=== PATIENT | male | born 1945 | race Caucasian/White ===

== ENCOUNTER → 2017-09-04 08:04 | Outpatient (CLI) | payer OTHER, SELFPAY ==
[2017-09-04 10:03] LABS: Add Manual Diff / Slide Review NO; Basophils Percent Auto 0.8 % (0-2); Eosinophils Percent Auto 2.5 % (2-4); Hematocrit 39.8 % (41-53); Hemoglobin 13.6 g/dL (13.5-17.5); Lymphocytes Percent Auto 38.9 % (25-40); Mean Corpuscular HGB Conc 34.3 % (30-36); Mean Corpuscular Hemoglobin 29.3 PG (26-34); Mean Corpuscular Volume 85.6 fL (80-100); Monocytes Percent Auto 10.1 % (3-14); Neutrophils Absolute Auto 2600 /uL (3000-5900); Neutrophils Percent Auto 47.7 % (50-75); Platelet Count 170 X10^3/uL (150-400); Red Blood Cell Count 4.65 X10^6/uL (4.5-5.9); Red Cell Distribution Width 13.6 % (11.6-14.8); White Blood Cell Count 5.5 X10^3/uL (4.5-11.0)
[2017-09-04 10:43] LABS: Alanine Aminotransferase 30 IU/L (21-72); Albumin Globulin Ratio 1.4 (1.0-2.8); Alkaline Phosphatase 53 U/L (38-126); Aspartate Aminotransferase 30 IU/L (17-59); BUN Creatinine Ratio 17.8 (6-22); Bilirubin Total 0.6 mg/dL (0.2-1.3); Calcium 9.1 mg/dL (8.4-10.2); Cholesterol 189 mg/dL (140-199); Estimated Glomerular Filt Rate > 60.0 mL/min (>60); Globulin 2.9 g/dL (1.7-4.1); Glucose 97 mg/dL (80-110); HDL Cholesterol 51 mg/dL (40-60); HEMOLYSIS < 15 (0-50); LDL Cholesterol Calculated 111 mg/dL (<100); Potassium 4.5 mmol/L (3.4-5.1); Sodium 143 mmol/L (137-145); Total Protein 6.9 g/dL (6.3-8.2); Triglycerides 136 mg/dL (35-150)
[2017-09-04 11:01] LABS: TSH w/ Reflex to FT4 3.48 uIU/mL (0.47-4.68)
[2017-09-04 11:05] LABS: Prostate Specific Antigen < 0.064 ng/mL (0.10-4.00)
== END ==
PROVIDERS: PCP Family Medicine; Visit Provider Family Medicine
DX: E78.5 Hyperlipidemia, unspecified (principal)
CPT/HCPCS: 36415; 80053; 80061; 84153; 84443; 85025

== ENCOUNTER → 2017-09-16 09:03 | Outpatient (CLI) | payer OTHER, SELFPAY ==
--- NOTE | 2017-09-16 09:04 | DI.ECHO.S_ITS ---
[facility] +---------+ [facility] +---------+ : : [address] : : [place] : : : : [id number] : : : : Phone: [phone]---------+ Echocardiogram Report + + :Name: DESMOND CALDWELL Study Date: 09/16/2017 Height: 68 in : :[facility] Exam Location: IS Weight: 184 lb : : Gender: Male BSA: 2.0 m2 : :: 1945 Age: 71 yrs BP: 138/78 mmHg: :Reason For Study: Murmur : :Ordering Physician: Sujey : :[place]ins Performed By: Perri Ramos : :Referring: SUJEY ERICKSON A : + + Interpretation Summary 1. Normal left ventricular size, wall thickness and systolic function with an estimated EF of 55 to 60% 2. Grossly normal right ventricular size and systolic function. The estimated RVSP is 21 mm Hg. The estimated right atrial pressure is low. 3. The aortic valve is not well visualized. There are some calcific changes. The mean gradient across the valve is most consistent with mild valvular stenosis. There is an eccentric jet of aortic insufficiency (somewhat difficult to characterize the location of the regurgitation with the images obtained) - this appears mild in severity. There is no old study available for comparison Procedure: A two-dimensional transthoracic echocardiogram with color flow and Doppler was performed. The study quality was technically adequate. Most of the acoustic windows were suboptimal, but the best imaging was obtained from the parasternal window. There is no prior echocardiogram noted for this patient. The patient was in normal sinus rhythm during the exam. Left Ventricle: The left ventricle is normal in size. Left ventricular wall thickness is normal. The ejection fraction is estimated to be 55-60%. Right Ventricle: The right ventricle grossly appears normal in size with probable normal systolic function. Atria: The left atrium is moderately dilated. Right atrium not well visualized secondary to technical limitations. No color doppler evidence for an ASD. Mitral Valve: The mitral valve is normal in structure and function. There is trace mitral regurgitation. Aortic Valve: Poor visualization of the aortic valve. Difficult to differentiate valve cusps. Nodular calcification is visualized on the aortic valve. The peak aortic velocity is 2.78 m/sec. The aortic valve mean gradient is 18 mmHg. There is no hemodynamically significant valvular aortic stenosis. There is mild aortic regurgitation. Aortic regurgitation jet location is difficult to assess due to eccentric direction of the jet. (See clip 62). Tricuspid Valve: The tricuspid valve is normal in structure and function. There is a trace or physiologic amount of tricuspid regurgitation. The right ventricular systolic pressure is estimated at 21 mmHg assuming a right atrial pressure of 3 mm Hg. Pulmonic Valve: The pulmonic valve is not well seen, but is grossly normal. There is trace pulmonic regurgitation. Great Vessels: The ascending aorta is dilated at 4.9 cm. The IVC is of normal diameter and collapses greater than 50% with a sniff. This suggests a low right atrial pressure of 3 mm Hg. Pericardium/ Pleura There is no pericardial effusion. There is no pleural effusion. MMode/2D Measurements & Calculations LVIDd: 5.3 cm asc Aorta Diam: 4.9 cm LVIDs: 3.4 cm Ao Arch Diam (Prox Trans): 3.6 cm FS: 36.1 % EPSS: 0.70 cm IVSd: 0.98 cm LVPWd: 1.2 cm LV costa. diameter/BSA (cm/m^2): 2.7 LV sys. diameter/BSA (cm/m^2): 1.7 LA A2 area: 23.4 cm2 LA A4 area: 25.9 cm2 LA length (vol): 5.5 cm LA vol: 93.5 ml LA vol index: 47.4 ml/m2 Doppler Measurements & Calculations Ao V2 max: 278.9 cm/sec LVOT Max Girma: 108.6 cm/sec Ao V2 mean: 203.0 cm/sec LV V1 max P.7 mmHg Ao max P.1 mmHg LV V1 VTI: 22.3 cm Ao mean P.2 mmHg sev ratio: 0.39 Ao V2 VTI: 56.7 cm MV E max girma: 61.3 cm/sec TR max girma: 212.6 cm/sec MV A max girma: 47.3 cm/sec TR max P.1 mmHg MV E/A: 1.3 PA V2 max: 56.9 cm/sec MV dec time: 0.19 sec PA V2 mean: 37.2 cm/sec PA mean P.62 mmHg PA pr(Accel): 29.1 mmHg Reading Physician:LISA
== END ==
PROVIDERS: Family Provider Family Medicine; PCP Family Medicine; Visit Provider Family Medicine
DX: I35.2 Nonrheumatic aortic (valve) stenosis with insufficiency (principal); R01.1 Cardiac murmur, unspecified
CPT/HCPCS: 93306

== ENCOUNTER → 2017-09-23 10:17 | Outpatient (CLI) | payer OTHER, SELFPAY ==
[2017-09-27 20:31] LABS: Fecal Immunochemical Test NOT DETECTED
== END ==
PROVIDERS: PCP Family Medicine; Visit Provider Family Medicine
DX: Z00.00 Encounter for general adult medical examination without abnormal findings (principal); Z12.11 Encounter for screening for malignant neoplasm of colon
CPT/HCPCS: 82274

== ENCOUNTER → 2018-02-27 08:30 | Outpatient (CLI) | payer OTHER, SELFPAY ==
[2018-02-27 10:06] LABS: Add Manual Diff / Slide Review NO; Basophils Percent Auto 0.9 % (0-2); Eosinophils Percent Auto 2.5 % (2-4); Hematocrit 42.1 % (41-53); Hemoglobin 14.4 g/dL (13.5-17.5); Lymphocytes Percent Auto 36.4 % (25-40); Mean Corpuscular HGB Conc 34.2 % (30-36); Mean Corpuscular Hemoglobin 29.2 PG (26-34); Mean Corpuscular Volume 85.4 fL (80-100); Monocytes Percent Auto 10.6 % (3-14); Neutrophils Absolute Auto 3000 /uL (3000-5900); Neutrophils Percent Auto 49.6 % (50-75); Platelet Count 198 X10^3/uL (150-400); Red Blood Cell Count 4.93 X10^6/uL (4.5-5.9); Red Cell Distribution Width 13.8 % (11.6-14.8)
== END ==
PROVIDERS: Visit Provider Registered Nurse
DX: R89.9 Unspecified abnormal finding in specimens from other organs, systems and tissues (principal)
CPT/HCPCS: 36415; 85025

== ENCOUNTER → 2018-06-05 15:48 | Outpatient (CLI) | payer OTHER, SELFPAY ==
--- NOTE | 2018-06-05 | DI.US.S_ITS ---
PROCEDURE: US ABDOMEN COMPLETE INDICATIONS: RIGHT UPPER QUADRANT PAIN TECHNIQUE: Real-time scanning was performed of the abdominal and retroperitoneal organs, with image documentation. COMPARISON: [facility], US, ABDOMEN COMPLETE, 10/04/2015, 7:34. FINDINGS: Liver: Liver is normal in size and homogeneous in echotexture. There are several scattered liver cysts the largest of which measures up to 1.7 cm, previously present. Gallbladder: The gallbladder appears normal Biliary ducts: Intrahepatic bile ducts are non-dilated. Extrahepatic bile duct caliber measures 4.9 mm. Normal is 6-7 mm or less in diameter, or 10 mm or less post-cholecystectomy. Pancreas: Visualized portions of the pancreas are sonographically normal. Spleen: Spleen is normal in size and homogeneous in echotexture. Kidneys: Kidneys are normal in size and echotexture. Right kidney measures 11.8 cm long; left kidney measures 10.6 cm long. No hydronephrosis or nephrolithiasis. No solid masses. Aorta: Visualized aorta is normal in caliber at less than 3 cm. Iliacs: Obscured by bowel gas IVC: Intrahepatic inferior vena cava is patent. Miscellaneous: No free abdominal fluid. IMPRESSION: Source of right upper quadrant pain after eating is not identified. The gallbladder is free of sludge or stone. No biliary distention is found. Depending on clinical status a followup nuclear medicine hepatobiliary scan with gallbladder ejection fraction evaluation may be warranted. Dictated by: Kenneth Cabral M.D. on 06/06/2018 at 10:23 Approved by: Kenneth Cabral M.D. on 06/06/2018 at 10:24
== END ==
PROVIDERS: PCP Student in an Organized Health Care Education/Training Program; Visit Provider Student in an Organized Health Care Education/Training Program
DX: R10.11 Right upper quadrant pain (principal); K76.89 Other specified diseases of liver
CPT/HCPCS: 76700

== ENCOUNTER → 2018-06-23 08:28 | Outpatient (CLI) | payer OTHER, SELFPAY ==
--- NOTE | 2018-06-23 08:30 | DI.NM.S_ITS ---
PROCEDURE: NM HIDA WITH CCK PHARMACEUTICAL: 4.6 mCi Tc-99m mebrofenin IV; 1.8 mcg CCK IV. INDICATIONS: RUQ pain after eating TECHNIQUE: Following intravenous administration of Tc-99m mebrofenin, sequential anterior abdominal images were obtained. To evaluate the contractile response of the gallbladder in response to Cholecystokinin (CCK), sincalide (0.02 ?g/kg) was administered by slow intravenous infusion approximately 60 minutes after the administration of the radiopharmaceutical. Sequential imaging was continued for 30 minutes after the start of CCK infusion. Gallbladder ejection fraction was calculated. COMPARISON: None. FINDINGS: Biliary scan: There is normal tracer uptake and excretion by the liver. There is normal visualization of the intrahepatic ducts, common bile duct, and gallbladder. There is normal tracer transit into the duodenum. CCK stimulation: There is normal contractile response of the gallbladder to CCK infusion. The calculated gallbladder ejection fraction is 50%; normal values are above 35%. It has been shown that any patient abdominal pain after CCK administration is related to the rate of CCK injection, rather than to any underlying gallbladder disease (Clinical Nuclear Medicine 2012; 37: 63-70. Journal of Nuclear Medicine 2014; 55: 1-9). IMPRESSION: Normal examination without evidence of cholecystitis. Dictated by: Katie Calix MD, PhD on 06/23/2018 at 12:44 Approved by: Katie Calix MD, PhD on 06/23/2018 at 12:45
== END ==
PROVIDERS: PCP Student in an Organized Health Care Education/Training Program; Visit Provider Student in an Organized Health Care Education/Training Program
DX: R10.11 Right upper quadrant pain (principal)
CPT/HCPCS: 78227; A9537; J2805

== ENCOUNTER → 2018-11-11 07:09 | Outpatient (CLI) | payer OTHER, SELFPAY ==
[2018-11-11 08:15] LABS: Alanine Aminotransferase 35 IU/L (21-72); Albumin Globulin Ratio 1.5 (1.0-2.8); Alkaline Phosphatase 46 U/L (38-126); Aspartate Aminotransferase 30 IU/L (17-59); BUN Creatinine Ratio 25.6 (6-22); Bilirubin Total 0.5 mg/dL (0.2-1.3); Blood Urea Nitrogen 23 mg/dL (9-20); Calcium 9.2 mg/dL (8.4-10.2); Carbon Dioxide 25 mmol/L (22-32); Chloride 107 mmol/L (98-107); Cholesterol 158 mg/dL (140-199); Estimated Glomerular Filt Rate > 60.0 mL/min (>60); Gamma Glutamyl Transpeptidase 22 U/L (15-73); Globulin 2.7 g/dL (1.7-4.1); Glucose 102 mg/dL (80-110); HDL Cholesterol 51 mg/dL (40-60); HEMOLYSIS < 15 (0-50); LDL Cholesterol Calculated 89 mg/dL (<100); Potassium 4.3 mmol/L (3.4-5.1); Sodium 141 mmol/L (137-145); Total Protein 6.7 g/dL (6.3-8.2); Triglycerides 88 mg/dL (35-150)
[2018-11-11 08:29] LABS: Vitamin D 25 Hydroxy (D3) 37.8 ng/mL (30.0-100.0)
[2018-11-11 08:48] LABS: Prostate Specific Antigen < 0.064 ng/mL (0.10-4.00)
== END ==
PROVIDERS: PCP Student in an Organized Health Care Education/Training Program; Visit Provider Student in an Organized Health Care Education/Training Program
DX: C61 Malignant neoplasm of prostate (principal); E78.2 Mixed hyperlipidemia; I10 Essential (primary) hypertension; R10.13 Epigastric pain; Z79.899 Other long term (current) drug therapy
CPT/HCPCS: 36415; 80053; 80061; 82306; 82977; 84153

== ENCOUNTER → 2019-10-02 09:22 | Outpatient (CLI) | payer MEDICARE, SELFPAY ==
--- NOTE | 2019-10-02 | DI.MRI.S_ITS ---
PROCEDURE: MR LUMBAR SPINE WO CON INDICATIONS: Spinal stenosis, lumbar region with neurogenic cla TECHNIQUE: Noncontrast sagittal T1 spin echo and T2 fast echo, sagittal STIR, axial T1 and T2 fast spin echo through the lumbar spine. In cases with scoliosis, additional coronal T2 fast spin echo may be performed. COMPARISON: [facility], MR, L-SPINE WITHOUT CONTRAST, 01/10/2017, 19:17. [facility], MR, L-SPINE W&WO CONTRAST, 01/11/2015, 16:48. [facility], CT, L-SPINE WITHOUT CONTRAST, 10/19/2014, 9:06. FINDINGS: Image quality: Excellent. Alignment and Curvature: There is normal bony alignment. Bones: Surgical changes compatible with L5-S1 PLIF. Recommend plate changes noted adjacent to the L5-S1 disc. No acute vertebral body compression fractures. Spinal Cord: Conus medullaris terminates at the L1 level. Visualized cord demonstrates normal signal and size. Paraspinous Soft Tissues: No paravertebral masses. L1-L2: Slight loss of disc signal. No central stenosis. No neural foraminal narrowing. No neural compression. L2-L3: Loss of the signal. Mild, diffuse disc bulge. Mild narrowing of the central canal. Mild bilateral neural foraminal narrowing. No neural compression. L3-L4: Loss of disc signal. Mild, diffuse disc bulge. Mild narrowing of the central canal. Mild bilateral neural foraminal narrowing. No neural compression. L4-L5: Loss of disc signal. Mild diffuse disc bulge. Mild bilateral facet hypertrophy. Mild narrowing of the central canal. Mild to moderate bilateral neural foraminal narrowing. No neural compression. L5-S1: Status post fusion. Mild bilateral facet hypertrophy. No central stenosis. Moderate right and [id number] left neural foraminal narrowing. No neural compression. IMPRESSION: 1. Status post L5-S1 fusion. 2. Multilevel degenerative disc disease. 3. Mild L2-L3, L3-L4 and L4-L5 central canal narrowing. 4. Moderate right and mild/moderate left L5-S1 neural foraminal narrowing. Mild to moderate bilateral L4-L5 neural foraminal narrowing. Mild bilateral L2-L3 and L3-L4 neural foraminal narrowing. 5. No neural compression. Dictated by: Katie Calix MD, PhD on 10/02/2019 at 13:37 Approved by: Katie Calix MD, PhD on 10/02/2019 at 13:41
== END ==
PROVIDERS: PCP Student in an Organized Health Care Education/Training Program; Referring Provider Psychiatry & Neurology Neurology; Visit Provider Psychiatry & Neurology Neurology
DX: M48.062 Spinal stenosis, lumbar region with neurogenic claudication (principal); M51.36 Other intervertebral disc degeneration, lumbar region; Z98.1 Arthrodesis status
CPT/HCPCS: 72148

== ENCOUNTER → 2019-12-01 07:53 | Outpatient (CLI) | payer MEDICARE, SELFPAY ==
[2019-12-01 10:15] LABS: C-Reactive Protein Quant 0.8 mg/dL (<1.0)
[2019-12-01 10:18] LABS: Erythrocyte Sedimentation Rate 11 MM/HR (0-15)
[2019-12-02 15:36] LABS: SS A Ro Sjogrens Antibody < 0.2 AI (0.0-0.9); SS B La Sjogrens Antibody < 0.2 AI (0.0-0.9)
[2019-12-03 10:17] LABS: ANA Screen, IFA Negative (.)
[2019-12-03 13:17] LABS: Antimyeloperoxidase AB <9.0 U/mL (0.0-9.0); Antiproteinase 3 AB <3.5 U/mL (0.0-3.5); Atypical P-ANCA Titer <1:20 titer (Neg:<1:20); C-ANCA Titer <1:20 titer (Neg:<1:20); P-ANCA Titer <1:20 titer (Neg:<1:20)
== END ==
PROVIDERS: PCP Student in an Organized Health Care Education/Training Program; Referring Provider Psychiatry & Neurology Neurology; Visit Provider Psychiatry & Neurology Neurology
DX: G60.3 Idiopathic progressive neuropathy (principal)
CPT/HCPCS: 36415; 82595; 83516; 83520; 85651; 86038; 86140; 86235; 86256

== ENCOUNTER → 2020-03-30 15:25 | Outpatient (CLI) | payer MEDICARE, SELFPAY ==
[2020-03-30 16:48] LABS: Alanine Aminotransferase 29 IU/L (<50); Albumin 4.1 g/dL (3.5-5.0); Albumin Globulin Ratio 1.4 (1.0-2.8); Alkaline Phosphatase 50 U/L (38-126); Aspartate Aminotransferase 34 IU/L (17-59); BUN Creatinine Ratio 23.9 (6-22); Bilirubin Total 0.3 mg/dL (0.2-1.3); Blood Urea Nitrogen 22 mg/dL (9-20); Calcium 9.3 mg/dL (8.4-10.2); Carbon Dioxide 31 mmol/L (22-32); Chloride 106 mmol/L (98-107); Cholesterol 209 mg/dL (140-199); Estimated Glomerular Filt Rate > 60.0 mL/min (>60); Globulin 2.9 g/dL (1.7-4.1); Glucose 73 mg/dL (80-110); HDL Cholesterol 42 mg/dL (40-60); HEMOLYSIS < 15 (0-50); LDL Cholesterol Calculated 108 mg/dL (<100); Potassium 3.9 mmol/L (3.4-5.1); Sodium 139 mmol/L (137-145); Triglycerides 293 mg/dL (35-150)
[2020-03-30 17:16] LABS: Prostate Specific Antigen 0.087 ng/mL (0.10-4.00)
== END ==
PROVIDERS: PCP Student in an Organized Health Care Education/Training Program; Referring Provider Student in an Organized Health Care Education/Training Program; Visit Provider Student in an Organized Health Care Education/Training Program
DX: E78.00 Pure hypercholesterolemia, unspecified (principal); Z85.46 Personal history of malignant neoplasm of prostate; G62.9 Polyneuropathy, unspecified; I10 Essential (primary) hypertension; Z79.899 Other long term (current) drug therapy
CPT/HCPCS: 36415; 80053; 80061; 84153

== ENCOUNTER → 2020-04-27 10:35 | Outpatient (CLI) | payer MEDICARE, SELFPAY ==
[2020-04-28 12:54] LABS: Fecal Immunochemical Test Negative (Negative)
== END ==
PROVIDERS: PCP Student in an Organized Health Care Education/Training Program; Referring Provider Student in an Organized Health Care Education/Training Program; Visit Provider Student in an Organized Health Care Education/Training Program
DX: Z12.11 Encounter for screening for malignant neoplasm of colon (principal)
CPT/HCPCS: 82274

== ENCOUNTER → 2020-05-12 16:19 | Outpatient (CLI) | payer MEDICARE, SELFPAY ==
[2020-05-12] MEDS: COVID-19 VACC #1, MRNA(MOD) 100 MCG/0.5 ML VIAL IM (16:26)
== END ==
PROVIDERS: PCP Student in an Organized Health Care Education/Training Program; Visit Provider Internal Medicine
DX: Z23 Encounter for immunization (principal)
CPT/HCPCS: 0011A; 91301

== ENCOUNTER → 2020-06-09 16:08 | Outpatient (CLI) | payer MEDICARE, SELFPAY ==
[2020-06-09] MEDS: COVID-19 VACC #2, MRNA(MOD) 100 MCG/0.5 ML VIAL IM (16:29)
== END ==
PROVIDERS: PCP Student in an Organized Health Care Education/Training Program; Visit Provider Internal Medicine
DX: Z23 Encounter for immunization (principal)
CPT/HCPCS: 0012A; 91301

== ENCOUNTER → 2023-02-07 10:29 | Outpatient (CLI) | payer MEDICARE, SELFPAY ==
--- NOTE | 2023-02-07 | DI.ECHO.S_ITS ---
[facility] +---------+ [facility] +---------+ : : [address] : : [place] : : : : [id number] : : : : Phone: [phone] +---------+ Echocardiogram Report + + :Name: DESMOND CALDWELL Study Date: 02/07/2023 Height: 68 in : :[facility] ReadingLocation: Weight: 196 lb : : Gender: Male BSA: 2.0 m2 : :: 1945 Age: 77 yrs BP: 144/84 mmHg: :Reason For Study: Congenital Insufficiency of Aortic Valve : :Ordering Physician: SWEETIE, : :NAWAF Performed By: Ramona Vasquez : :Referring: NAWAF MCGOWAN : + + Interpretation Summary 1) Mildly increased left ventricular thickenss (concentric) with normal size and low normal systolic function (EF 50-55%). 2 Normal right ventricular size and function. 3) Aortic valve is bicuspid and calcific. 4) There is moderate aortic stenosis (valve area 1.1cm2, mean gradient 20mmHg, severity ratio 0.31). 5) The ascending aorta is moderate-severely enlarged at 4.8cm. 6 No prior echo available for comparison. Procedure: A two-dimensional transthoracic echocardiogram with color flow and Doppler was performed. The study quality was technically adequate. The patient had an echocardiogram, but there is no comparison study available. The patient was in a bradycardic rhythm during the exam. The patient had occasional PACs during the exam. Left Ventricle: The left ventricle is normal in size. There is mild concentric left ventricular hypertrophy. The ejection fraction is estimated to be 50-55%. There are no focal wall motion abnormalities. Diastolic parameters suggest a relaxation abnormality of the left ventricle, consistent with probable normal filling pressures. Right Ventricle: The right ventricle is normal in size and function. Atria: The left atrium is moderately dilated. Right atrial size is normal. There is no Doppler evidence for an interatrial shunt. Mitral Valve: The mitral valve is normal. There is no mitral valve stenosis. There is trace mitral regurgitation. Aortic Valve: The aortic valve is bicuspid. The aortic valve is heavily calcified. There is moderate aortic stenosis. The peak aortic velocity is 3.02 m/sec. The aortic valve mean gradient is 20 mmHg. There is trace aortic regurgitation. Tricuspid Valve: The tricuspid valve is normal. There is no tricuspid stenosis. There is trace tricuspid regurgitation. The right ventricular systolic pressure is estimated to be at least 18 mmHg based on an estimated right atrial pressure of 3 mm Hg. Pulmonic Valve: The pulmonic valve leaflets are thin and pliable; valve motion is normal. There is no pulmonic valvular stenosis. There is trace pulmonic regurgitation. Great Vessels: The aortic root is normal size. The ascending aorta is moderate-severely enlarged. The pulmonary artery is normal size. The IVC is of normal diameter and collapses greater than 50% with a sniff. This suggests a low right atrial pressure of 3 mm Hg. Pericardium/ Pleura There is no pericardial effusion. There is no pleural effusion. MMode/2D Measurements & Calculations LVIDd: 4.7 cm LVOT diam: 2.1 cm LVIDs: 3.2 cm Ao root diam: 3.4 cm FS: 31.9 % asc Aorta Diam: 4.8 cm IVSd: 1.1 cm LVPWd: 1.2 cm LV costa. diameter/BSA (cm/m^2): 2.3 LV sys. diameter/BSA (cm/m^2): 1.6 LA A2 area: 25.0 cm2 RA long axis: 5.0 cm LA A4 area: 21.7 cm2 RA area: 14.3 cm2 LA length (vol): 6.7 cm RA vol: 34.4 ml LA vol: 68.8 ml RA : 17.0 ml/m2 LA vol index: 34.0 ml/m2 RVD1 (basal): 3.2 cm LVLs ap4: 6.7 cm LVLd ap2: 7.5 cm TAPSE_phl: 2.3 cm LVLs ap2: 6.2 cm Doppler Measurements & Calculations Ao V2 max: 291.0 cm/sec LVOT Max Girma: 93.8 cm/sec Ao V2 mean: 196.8 cm/sec LV V1 max P.5 mmHg Ao max P.0 mmHg LV V1 VTI: 23.1 cm Ao mean P.6 mmHg ARMIDA(I,D): 1.1 cm2 Ao V2 VTI: 73.8 cm ARMIDA(V,D): 1.1 cm2 sev ratio: 0.31 ARMIDA indexed to BSA (cm^2/m^2): 0.55 MV E max girma: 65.5 cm/sec TR max girma: 193.9 cm/sec MV A max girma: 68.6 cm/sec TR max P.0 mmHg MV E/A: 0.95 PA V2 max: 98.9 cm/sec Med Peak E' Girma: 5.1 cm/sec PA V2 mean: 64.7 cm/sec E/E' med: 12.9 PA mean P.0 mmHg Lat Peak E' Girma: 7.4 cm/sec PA pr(Accel): 13.8 mmHg E/E' lat: 8.8 E/e' average: 10.8 MV dec time: 0.20 sec SV(LVOT): 82.2 ml AV VR_phl: 0.32 ARMIDA(VTI)/BSA_phl: 0.48 Reading Physician:01:08 PM
--- OUTSIDE RECORDS SUMMARY | 2023-03-15 14:58 | XMS_ITS | Referral Summary ---
Author Name Unknown Organization [facility] Address [address] [place] [address] Care Team Providers Care Window Clerk Name Role Phone Marta Rojas MD Primary Care Provider Reason for Referral * Consultation (Routine) - Authorized Specialty Diagnoses / Procedures Referred By Contac t Referred To Contact Physical Therapy Diagnoses History of lumbar fusion Lumbar facet arthropathy Lumbar strain, initial encounter Damian Quan PA-C [address] [place] [address] [place] [id number] [phone] Referral ID Status Reason Start Date Expiration Date Visits Requested Visits Authorized [id number] Authorized Specialty Services Required 11/06/2022 11/01/2023 12 12 * Diagnostic Imaging (Routine) - Closed Specialty Diagnoses / Procedures Referred By Contac t Referred To Contact Radiology Diagnoses Low back pain, unspecified back pain laterality, unspecified chronicity, unspecified whether sciatica present Procedures XR LUMBAR SPINE WITH FLEXION EXTENSION 5 VIEWS Damian Quan PA-C [address] [place] [address] [facility] [address] [place] [address] Referral ID Status Reason Start Date Expiration Date V isits Requested Visits Authorized [id number] Closed Specialty Services Required 11/02/2022 10/28/2023 1 1 Reason for Visit * Reason Comments Pain Lumbar back pain * Surgical (Routine) - Closed Specialty Diagnoses / Procedures Referred By Lory t Referred To Contact Orthopedic Surgery / Orthopaedic Surgery Diagnoses Lumbar back pain History of lumbar fusion Marta Rojas MD [address] [place] [address] [facility] [address] [place] [phone] Referral ID Status Reason Start Date Expiration Date V isits Requested Visits Authorized [id number] Closed Specialty Services Required 10/30/2022 11/30/2022 1 1 Encounter Details Date Type Department Care Team Description 11/06/2022 Office Visit [facility] [place] [address] [place] [phone] Damian Quan PA-C [facility] [place] [address] Low back pain, unspecified back pain laterality, unspecified chronicity, unspecified whether sciatica present (Primary Dx); Lumbar facet arthropathy; Lumbar spondylosis; History of lumbar fusion; Lumbar strain, initial encounter Allergies Active Allergy Reactions Severity Noted Date Comments Penicillins Hives Medium 12/02/2017 documented as of this encounter (statuses as of 11/12/2022) Medications Medication Sig Dispensed Refills Start Date End Date Status lisinopriL (PRINIVIL) 20 mg tabletIndications:Es sential hypertension take 1 tablet by mouth once daily 90 tablet 3 12/27/2021 Active Additional Information Patient taking differently: 20 mg oral Every morning, Informant: Self, Reported on 03/14/2022 gabapentin (NEURONTIN) 300 mg capsule Take 1 capsule (300 mg total) by mouth 3 (three) times a day 60 capsule 2 02/27/2022 Active primidone (MYSOLINE) 50 mg tabletIndications:Es sential tremor Take 1 tablet (50 mg total) by mouth 2 (two) times a day 180 tablet 3 03/20/2022 3 Active ascorbic acid, vitamin C, (VITAMIN C) 1,000 mg tablet Take 1 tablet (1,000 mg total) by mouth daily 0 Active pravastatin (PRAVACHOL) 20 mg tabletIndications:Mi xed hyperlipidemia Take 1 tablet (20 mg total) by mouth daily 90 tablet 3 06/12/2022 Active acetaminophen (TYLENOL) 325 mg tablet Take 2 tablets (650 mg total) by mouth every 6 (six) hours as needed for mild pain 0 Active Xiidra 5 % dropperette INSTILL 1 DROP INTO AFFECTED EYE 2 TIMES EVERY DAY 0 11/02/2022 Active methocarbamoL (ROBAXIN) 500 mg tabletIndications:Lo w back pain, unspecified back pain laterality, unspecified chronicity, unspecified whether sciatica present,History of lumbar fusion,Lumbar facet arthropathy,Lumbar spondylosis Start with 1 tablet at bedtime as needed for muscle spasms, can increase to 4 times daily if tolerating well 40 tablet 1 11/06/2022 Active methylPREDNISolone (MEDROL DOSEPACK) 4 mg tabletIndications:Lo w back pain, unspecified back pain laterality, unspecified chronicity, unspecified whether sciatica present,History of lumbar fusion,Lumbar facet arthropathy,Lumbar spondylosis Take as directed on package for pain/inflammation 1 tablet 0 11/06/2022 3 Active meloxicam (MOBIC) 15 mg tabletIndications:Lo w back pain, unspecified back pain laterality, unspecified chronicity, unspecified whether sciatica present,History of lumbar fusion,Lumbar facet arthropathy,Lumbar spondylosis Take 0.5 tablets (7.5 mg total) by mouth daily Take 1 tablet with breakfast for pain/inflammation x2 weeks, then as needed 30 tablet 1 11/06/2022 Active documented as of this encounter (statuses as of 11/12/2022) Active Problems Problem Noted Date Lumbar facet arthropathy 11/06/2022 Lumbar spondylosis 11/06/2022 Lumbar strain, initial encounter 023 Low back pain 11/06/2022 Medicare annual wellness visit, subseque nt 06/08/2022 Last Assessment & Plan: Ask the pharmacy about Shingrix vaccine - 2-dose vaccine against shingles. Dry mouth 06/08/2022 Asymptomatic spider vein 06/08/2022 History of right hip replacement 023 Keratosis, seborrheic 08/24/2021 Last Assessment & Plan: - Discussed benign nature of patient's seborrheic keratosis. Informed patient regarding ABCDE changes to watch out for and to use sunscreen to limit damage from sun exposure. Retrolisthesis of vertebrae 08/10/2021 History of lumbar fusion 08/09/2021 Last Assessment & Plan: Patient continues to have some numbness lower extremity, will follow-up with orthopedic spinal, has pending MRI and EMG nerve study. Lumbar radiculopathy 08/09/2021 Last Assessment & Plan: - EMG/NCV performed in clinic today. - Apply ice in 15-20 minute intervals to any painful areas. - Results from today's study will be shared with your referring provider. - Please follow up with Miranda Royal PA-C to review results once they become available. - Contact Neurology if you develop any new or worsening neurologic symptoms. Neuropathy 09/05/2020 Last Assessment & Plan: Look into alpha-lipoic acid 600 mg daily as a supplement for neuropathy. Let me know if you are interested in trying Gabapentin 100 mg during the day as needed for pain. Aortic stenosis due to bicuspid aortic v alve 09/05/2020 Last Assessment & Plan: An ECHO was ordered at today's visit. Essential hypertension 11/07/2017 Last Assessment & Plan: Very well controlled. Continue with lisinopril 20 mg. Ascending aorta dilatation 11/07/2017 Hyperlipidemia 07/10/2016 Last Assessment & Plan: Continue with pravastatin 10 mg Lab work ordered today. Please go to the lab and complete these in February 2021. documented as of this encounter (statuses as of 11/12/2022) Resolved Problems Problem Noted Date Resolved Date Osteoarthritis of right hip 08/24/202105/17 Last Assessment & Plan: Was noted on previous x-ray of right hip. documented as of this encounter (statuses as of 11/12/2022) Immunizations Name Administration Dates Next Due DTaP, Unspecified 02/10/2008,06/14/1999 FLU High Dose 65+ (Fluzone) 02/12/2017, 6 Hep A, Adult (Havrix, Vaqta) 06/14/1999,07/07/18 98 Hep B, Adult (Engerix,Recombivax) 06/14/2005,01/2005,06/15/2004 Influenza Trivalent, Adjuvan yuan, Preservative Free 12/18/2018,12/27/2017 Influenza, Quadrivalent 12/22/2021,12/24,12/29/2019,12/18,12/27/2017,01/19/2014 Influenza, Seasonal, Injectable 01/18/2011,02/09 Live Zoster (Zostavax) 02/16/2015,05/02/2012 Moderna Covid Vaccine Monovalent 12/22/2021,04/16 Moderna SARS-CoV-2 Vaccine Monovalent 12/07/2020 ,06/09/2020,05/12/2020 Pfizer Covid Vaccine, Bivalent (12+) 05/22/2022 Pneumococcal Conjugate PCV13 ([id number]) 07/28/2015 Pneumococcal Polysaccharide PPV23 ([id number]) 09/10/2017,01/02/2010,03/10/2001 TD Preservative Free (Tenivac) 09/10/2017 Tdap (Boostrix,Adacel) 01/02/2010 Yellow Fever 06/14/1999 documented as of this encounter Social History Tobacco Use Types Packs/Day Years Used Date Smoking Tobacco: Former Cigarettes 1 7 Q uit: 04/15/1974 Smokeless Tobacco: Never Alcohol Use Standard Drinks/Week Comments Yes 1 (1 standard drink = 0.6 oz pur e alcohol) weekly Sex Assigned at Date Recorded Not on file Job Start Date Occupation Industry Not on file Not on file Not on file documented as of this encounter Last Filed Vital Signs Vital Sign Reading Time Taken Comments Blood Pressure 117/72 11/06/2022 10:33 AM PDT Pulse 55 11/06/2022 10:33 AM PDT Temperature - - Respiratory Rate - - Oxygen Saturation 98% 11/06/2022 10:33 AM PDT Inhaled Oxygen Concentration - - Weight 90.4 kg (199 lb 6.4 oz) 11/06/2022 10:33 AM PDT Height 172.7 cm (5' 7.99) 11/06/2022 10:33 AM P DT Body Mass Index 30.33 11/06/2022 10:33 AM PDT documented in this encounter Progress Notes * Damian Quan PA-C - 11/06/2022 10:00 AM PDT I have placed a referral to physical therapy for your lumbar spine. We have provided you with a list of PT clinics. Please work on getting established with a clinic of your choosing. Please hang on to the copy of the referral we gave you today, and bring it to your first appointment. Not only do I believe you may benefit from physical therapy, but many insurance plans will not cover additional imaging or treatments until physical therapy has been tried, so we highly recommend youget started on this. I have sent the following medications to your pharmacy: -Medrol dose pack (steroid) x6 days: please start in the morning, take as directed. This can make you feel anxious, jittery, and cause some insomnia. Do not use with other NSAIDs (Advil, Aleve, ibuprofen, meloxicam, etc.). -Meloxicam: take 1 tab with breakfast for pain/inflammation. (Complete your medrol dose pack first,if prescribed) -Methocarbamol (muscle relaxer): start taking at night as needed for muscle spasms, can increase to4 times daily if tolerated. Do not operate heavy machinery while taking this medication. -Gabapentin: take 1 tablet at night x5 days, then 1 tablet twice daily x5 days, then 1 tablet threetimes daily, continue, for nerve pain. Taper on/off this medication. Please discuss Cymbalta (duloxetine) with your PCP for chronic musculoskeletal pain. You need to taper up to 60 mg/day for several weeks for full effect. This medication also has anti-anxiety and anti-depression properties. You may try OTC Salonpas patches for muscle spasm pain. If your pain is not improving in 4-6 weeks, then call me and we order a MRI of lumbar spine withoutcontrast. You can follow up with me for results, and we will likely get you a referral to pain management (Dr. Means or Dr. Dover) at that time. [phone] * Damian Quan PA-C - 11/06/2022 10:[address] [facility] [address] [place] [address] New Patient Consultation / H&P Note REFERRING PROVIDER: Marta Rojas MD [address] [place] [address] PCP: Marta Rojas MD CHIEF COMPLAINT: Chief Complaint Patient presents with Spine - Pain Lumbar back pain HPI: Desmond Nix is a 76 y.o. male who presents to the clinic for initial evaluation of their lumbar pain. Pain has been present for 4 months. Pain is in his entire lower lumbar area and does not radiate anywhere else. Numbness and tingling in both feet to the great toe and second toes (hx of neuropathy, R>L). Aggravated by bending over, sitting, getting out of bed, and twisting and will get relief from walking, Gabapentin and Tylenol. Pain level today is at a 3-4/10 and can get toa 10/10. Denies bowel or bladder changes. Occupation: [employer]-retired Currently taking Tylenol and Gabapentin for pain as needed; and has not tried anything else. He hasbeen using the gabapentin intermittently for his peripheral neuropathy. Physical therapy within thelast year: No-for hip only . Lumbar injections : Yes-JASON with [facility] 01/06/2020 . Previous spine surgeries: Yes- Lumbar Fusion L5-S1 [place] [address] Bass, which resolved his radicular pain. His main concern is low back pain, especially after bending. He is not having any pain shooting down his leg, as he was was having prior to his fusion. The pain is mostly across his low back. His legs feel occasionally heavy and tired when he walks, but resolves with more walking. ALLERGIES: (Reviewed with the patient) Allergies Allergen Reactions Penicillins Hives MEDICATIONS (Prior to the current encounter): Reviewed with the patient Current Outpatient Medications on File Prior to Visit Medication Sig Dispense Refill acetaminophen (TYLENOL) 325 mg tablet Take 2 tablets (650 mg total) by mouth every 6 (six) hours asneeded for mild pain ascorbic acid, vitamin C, (VITAMIN C) 1,000 mg tablet Take 1 tablet (1,000 mg total) by mouth daily gabapentin (NEURONTIN) 300 mg capsule Take 1 capsule (300 mg total) by mouth 3 (three) times a day 60 capsule 2 lisinopriL (PRINIVIL) 20 mg tablet take 1 tablet by mouth once daily (Patient taking differently: Take 1 tablet (20 mg total) by mouth every morning) 90 tablet 3 pravastatin (PRAVACHOL) 20 mg tablet Take 1 tablet (20 mg total) by mouth daily 90 tablet 3 primidone (MYSOLINE) 50 mg tablet Take 1 tablet (50 mg total) by mouth 2 (two) times a day 180 tablet 3 Xiidra 5 % dropperette INSTILL 1 DROP INTO AFFECTED EYE 2 TIMES EVERY DAY No current facility-administered medications on file prior to visit. PMH, PSH, FH, & SH: (Reviewed on the patient intake sheet and the medical records; any changes have been documented and updated in the electronic medical record.) Past Medical History: Diagnosis Date Angina pectoris ([facility]) Aortic stenosis Arthritis Bursitis of hip Cancer ([facility]) Prostate Chest pain Colon polyp Coronary artery disease Epistaxis Fracture of ankle Fracture of hand Fracture, foot Heart murmur Hyperlipidemia Hypertension Lumbosacral disc disease Osteoarthritis of right hip 08/24/2021 Prostate cancer ([facility]) Rotator cuff syndrome Spinal stenosis Tibia/fibula fracture Valvular disease Past Surgical History: Procedure Laterality Date ANKLE FRACTURE SURGERY BACK SURGERY 2016 FOOT SURGERY Right x2 HIP ARTHROPLASTY LUMBAR DISCECTOMY FL COLONOSCOPY W/BIOPSY SINGLE/MULTIPLE N/A 01/19/2021 Procedure: COLONOSCOPY; Surgeon: David Ponce MD; Location: [facility]; Service: Gastroenterology FL TOTAL HIP ARTHROPLASTY Right 02/27/2022 Procedure: RIGHT ANTERIOR TOTAL HIP ARTHROPLASTY; Surgeon: Mg Crocker DO; Location: [facility]; Service: Orthopedics PROSTATECTOMY Family History Problem Relation Age of Onset Cancer Father Heart disease Maternal Grandmother Heart disease Maternal Grandfather Heart disease Paternal Grandmother Colon cancer Cousin Social History Tobacco Use Smoking status: Former Packs/day: 1.00 Years: 7.00 Pack years: 7.00 Types: Cigarettes Quit date: 04/15/1974 Years since quittin.5 Smokeless tobacco: Never Vaping Use Vaping Use: Never used Substance Use Topics Alcohol use: Yes Alcohol/week: 1.0 - 2.0 standard drink Types: 1 - 2 Glasses of wine per week Comment: weekly Drug use: No Social History Substance and Sexual Activity Drug Use No ROS: Per HPI. Review of Systems PHYSICAL EXAM: VITAL SIGNS (Reviewed) BP 117/72 Pulse (!) 55 Ht 1.727 m Wt 90.4 kg SpO2 98% BMI 30.33 kg/m?? General: Well groomed, well developed, and well nourished Mood/Affect: normal Orientation: alert and oriented Eyes: EOMI Gait: Patient ambulates with normal gait. Patient able to perform tandem gait with mild difficulty. Tenderness to palpation: Midline Paraspinal Thoracic No TTP No TTP Lumbar TTP No TTP, but taught SI Joint Right nonTTP Left nonTTP ROM: Flexion Extension Rotation Side-bending Thoracic Limited Limited Limited Limited Lumbar Limited Limited Limited Limited Standing alignment: Coronal Sagittal Cervical Normal Normal Thoracic Normal Normal Lumbar Normal Normal Musculoskeletal Exam: No visual deformity swelling, effusion, or erythema of bilateral shoulders, elbows, wrists, hips, knees, and ankles and full AROM without discomfort or crepitus. No joint tenderness on palpation. Motor/ Sensory Examination Motor: Lower Extremity Right Left Iliopsoas 5 5 Quadriceps 5 5 Hamstrings 5 5 Dorsiflexion 5 5 Plantarflexion 5 5 EHL 5 5 Sensory: Lower extremity Right Left L2 (lat upper thigh) normal Normal L3 (lat mid thigh) Normal Normal L4 (med calf) decreased pain/sensitivity decreased pain/sensitivity L5 (med malleolus) decreased pain/sensitivity decreased pain/sensitivity S1 (lat malleolus) decreased decreased Reflexes: Lower Extremity Right Left Patellar 2 2 Achilles 0 0 Radicular signs: Lumbar Right Left Straight leg raise Positive Positive Abbreviated hip exam: Right Hip: No groin pain with flexion and internal rotation. Left Hip: No groin pain with flexion and internal rotation. Cardiovascular: Extremities are warm and well perfused. Lungs: Patient with non-labored breathing. No audible wheezing. Cranial Nerves: II - XII are intact IMAGING / DIAGNOSTIC STUDIES: (Reviewed with the patient, looking at the actual images and the radiologist's report) X-ray 5 view lumbar spine 11/06/2022: -L5-S1 TLIF with good overall alignment, no evidence of loosening, failures. There are degenerativechanges noted including anterior osteophyte formation, worse at L4 and L5, degenerative disc disease, worse at L4, L5. Mild facet arthropathy. No significant listhesis appreciated. LABS: Lab Results Component Value Date WBC 5.6 09/13/2022 HGB 12.7 (L) 09/13/2022 HCT 38.8 (L) 09/13/2022 MCV 92 09/13/2022 PLT 199 09/13/2022 Chemistry Component Value Date/Time NA 140 09/13/2022 1345 K 4.3 09/13/2022 1345 CL 106 09/13/2022 1345 CO2 27 09/13/2022 1345 BUN 19.8 09/13/2022 1345 CREATININE 1.04 09/13/2022 1345 Component Value Date/Time CALCIUM 8.8 09/13/2022 1345 AST 46 09/13/2022 1345 ALT 40 09/13/2022 1345 BILITOT 0.3 09/13/2022 1345 IMPRESSION: 1. Low back pain, unspecified back pain laterality, unspecified chronicity, unspecified whether sciatica present 2. Lumbar facet arthropathy 3. Lumbar spondylosis 4. History of lumbar fusion 5. Lumbar strain, initial encounter PLAN / DISCUSSION: Patient Instructions I have placed a referral to physical therapy for your lumbar spine. We have provided you with a list of PT clinics. Please work on getting established with a clinic of your choosing. Please hang on to the copy of the referral we gave you today, and bring it to your first appointment. Not only do I believe you may benefit from physical therapy, but many insurance plans will not cover additional imaging or treatments until physical therapy has been tried, so we highly recommend youget started on this. I have sent the following medications to your pharmacy: -Medrol dose pack (steroid) x6 days: please start in the morning, take as directed. This can make you feel anxious, jittery, and cause some insomnia. Do not use with other NSAIDs (Advil, Aleve, ibuprofen, meloxicam, etc.). -Meloxicam: take 1 tab with breakfast for pain/inflammation. (Complete your medrol dose pack first,if prescribed) -Methocarbamol (muscle relaxer): start taking at night as needed for muscle spasms, can increase to4 times daily if tolerated. Do not operate heavy machinery while taking this medication. -Gabapentin: take 1 tablet at night x5 days, then 1 tablet twice daily x5 days, then 1 tablet threetimes daily, continue, for nerve pain. Taper on/off this medication. Please discuss Cymbalta (duloxetine) with your PCP for chronic musculoskeletal pain. You need to taper up to 60 mg/day for several weeks for full effect. This medication also has anti-anxiety and anti-depression properties. You may try OTC Salonpas patches for muscle spasm pain. If your pain is not improving in 4-6 weeks, then call me and we order a MRI of lumbar spine withoutcontrast. You can follow up with me for results, and we will likely get you a referral to pain management (Dr. Means or Dr. Dover) at that time. [phone] His previous lumbar fusion appears to be intact. The pain he is describing currently does not is more consistent with lumbar facet arthropathy. We will get him into physical therapy at [facility]. He may call us in 4 to 6 weeks if he is not improving and we will send her for an MRI scan of hislumbar spine without contrast and he may follow-up with me for results. At that point, if everything is relatively normal, we can refer him back to Dr. Dover or get him over to Dr. Means to discuss possible epidural injections including medial branch blocks. I have carefully explained the current diagnoses and the treatment options and recommendations. I provided the patient and/or their caregiver(s) educational materials about their condition and its treatment options. I have answered all of the patient???s questions, and the patient is in agreement with the plan. Thank you for allowing me to participate in this patient's care. Please contact us if you have any questions and concerns. New Medications Ordered This Visit Medications methocarbamoL (ROBAXIN) 500 mg tablet Sig: Start with 1 tablet at bedtime as needed for muscle spasms, can increase to 4 times daily if tolerating well Dispense: 40 tablet Refill: 1 methylPREDNISolone (MEDROL DOSEPACK) 4 mg tablet Sig: Take as directed on package for pain/inflammation Dispense: 1 tablet Refill: 0 meloxicam (MOBIC) 15 mg tablet Sig: Take 0.5 tablets (7.5 mg total) by mouth daily Take 1 tablet with breakfast for pain/inflammation x2 weeks, then as needed Dispense: 30 tablet Refill: 1 Orders Placed This Encounter Procedures XR LUMBAR SPINE WITH FLEXION EXTENSION 5 VIEWS Standing Status: Future Number of Occurrences: 1 Standing Expiration Date: 02/03/2024 Order Specific Question: Release to patient Answer: Immediate XTRNL Referral to Physical Therapy Core strengthening Standing Status: Future Standing Expiration Date: 11/07/2023 Referral Priority: Routine Referral Type: Consultation Referral Reason: Specialty Services Required Referral Location: [facility] Requested Specialty: Physical Therapy Number of Visits Requested: 12 Patient Instructions I have placed a referral to physical therapy for your lumbar spine. We have provided you with a list of PT clinics. Please work on getting established with a clinic of your choosing. Please hang on to the copy of the referral we gave you today, and bring it to your first appointment. Not only do I believe you may benefit from physical therapy, but many insurance plans will not cover additional imaging or treatments until physical therapy has been tried, so we highly recommend youget started on this. I have sent the following medications to your pharmacy: -Medrol dose pack (steroid) x6 days: please start in the morning, take as directed. This can make you feel anxious, jittery, and cause some insomnia. Do not use with other NSAIDs (Advil, Aleve, ibuprofen, meloxicam, etc.). -Meloxicam: take 1 tab with breakfast for pain/inflammation. (Complete your medrol dose pack first,if prescribed) -Methocarbamol (muscle relaxer): start taking at night as needed for muscle spasms, can increase to4 times daily if tolerated. Do not operate heavy machinery while taking this medication. -Gabapentin: take 1 tablet at night x5 days, then 1 tablet twice daily x5 days, then 1 tablet threetimes daily, continue, for nerve pain. Taper on/off this medication. Please discuss Cymbalta (duloxetine) with your PCP for chronic musculoskeletal pain. You need to taper up to 60 mg/day for several weeks for full effect. This medication also has anti-anxiety and anti-depression properties. You may try OTC Salonpas patches for muscle spasm pain. If your pain is not improving in 4-6 weeks, then call me and we order a MRI of lumbar spine withoutcontrast. You can follow up with me for results, and we will likely get you a referral to pain management (Dr. Means or Dr. Dover) at that time. [phone] Damian Quan PA-C Orthopedic Spine Surgery Located Within [facility] Some parts of this note may have been created by using the [employer] speech recognition software. Cc: Marta Rojas MD Cc: Marta Rojas MD documented in this encounter Plan of Treatment Upcoming Encounters Date Type Specialty Care Team Description 12/07/2022 Office Visit Internal Medicine Marta Rojas MD [address] [place] [address] 02/18/2023 Office Visit Cardiology Scott Mcgowan MD [address] [place] [address] [address] [place], [place] [id number] 03/15/2023 Lab Lab 03/18/2023 Office Visit Oncology Nancie Byrne MD [address] [place] [address] [address] [place], [place] [phone] Scheduled Referrals Name Type Priority Associated Diagnoses Order Schedule XTRNL Referral to Physical Therapy Outpatient Referral Routine History of lumbar fusion Lumbar facet arthropathy Lumbar strain, initial encounter 1 Occurrences starting 11/06/2022 until 11/07/2023 documented as of this encounter Medical Devices Implanted Type Area Street Light Servicer Helper Device Identifier Shelf Expiration Date Model / Serial / Lot Head, Fem Ceramic +1.5 36mm - [id number] Implanted:Qty: 1 on 02/27/2022 by Mg Crocker DO at [facility] Right: Hip DEPUY 01/12/2027 [id number] / / [id number] documented as of this encounter Results * XR LUMBAR SPINE WITH FLEXION EXTENSION 5 VIEWS (11/06/2022 10:05 AM PDT) Anatomical Region Laterality Modality Body N/A Radiographic Krissy ging 11/06/2022 11:5 6 AM PDT Narrative 11/06/2022 12:07 [place]. [address] PATIENT NAME: DESMOND NIX : 1945 GENDER: M EXAM DATE: 11/06/2022 ?? 9:54 [facility] DAMIAN QUAN CC: ??-- ??- ??- ??- CONTRAST: ? READING STATION ID: [id number] mGy: PROCEDURE: ??XR LUMBAR SPINE WITH FLEXION EXTENSION 5 VIEWS INDICATIONS: ??pain TECHNIQUE: ??5 views of the lumbar spine acquired, including flexion and extension views. COMPARISON: ??[facility], , XR LUMBAR SPINE WITH OLBIQUES PLUS FLEXION EXTENSION, 12/22/2019, 11:20. FINDINGS: ?? Bones: ??5 nonrib-bearing vertebrae are present. ??Posterior/interbody fusion at the L5-S1 level which appears stable compared to prior examination. ??Mild multilevel disc height loss with endplate sclerosis and spurring. ??Mild facet joint arthropathy L4-L5 and L5-S1. ??There is normal bony alignment. ??No vertebral body compression fractures. ??No suspicious bony lesions. ?? Soft tissues: ??Overlying bowel gas pattern is normal. ??No suspicious soft tissue calcifications. ?? Flexion/extension: ??There is limited range of motion, with preserved normal alignment. ?? IMPRESSION: ?? 1. Stable appearance status post L5-S1 posterior/interbody fusion. 2. Limited range of motion and mild multilevel lumbar spine spondylosis. ?? Reviewed by: Hernandez QUIÑONEZ Interpreted: Joey Sampson MD on 11/06/2022 at 11:54 ?? Transcribed by: VANNESSA on 11/06/2022 at 11:56 ? Approved by: Joey Sampson M.D. on 11/06/2022 at 12:06 ? Procedure Note Joey Sampson P - 11/06/2022 [place]. [address] PATIENT NAME: DESMOND NIX : 1945 GENDER: M EXAM DATE: 11/06/2022 9:54 ORDERED FROM: [facility] ORDERING PHYSICIAN: DAMIAN QUAN CC: -- - - - CONTRAST: READING STATION ID: [id number] mGy: PROCEDURE: XR LUMBAR SPINE WITH FLEXION EXTENSION 5 VIEWS INDICATIONS: pain TECHNIQUE: 5 views of the lumbar spine acquired, including flexion andextension views. COMPARISON: [facility], [place], XRLUMBAR SPINE WITH OLBIQUES PLUS FLEXION EXTENSION, 12/22/2019, 11:20. FINDINGS: Bones: 5 nonrib-bearing vertebrae are present. Posterior/interbodyfusion at the L5-S1 level which appears stable compared to priorexamination. Mild multilevel disc height loss with endplate sclerosis andspurring. Mild facet joint arthropathy L4-L5 and L5-S1. There is normalbony alignment. No vertebral body compression fractures. No suspiciousbony lesions. Soft tissues: Overlying bowel gas pattern is normal. No suspicious softtissue calcifications. Flexion/extension: There is limited range of motion, with preservednormal alignment. IMPRESSION: 1. Stable appearance status post L5-S1 posterior/interbody fusion. 2. Limited range of motion and mild multilevel lumbar spine spondylosis. Reviewed by: Hernandez Garcia Zuri Interpreted: Joey Sampson MD on 11/06/2022t 11:54 Transcribed by: VANNESSA on 11/06/2022 at 11:56 Approved by: Joey Sampson M.D. on 11/06/2022 at 12:06 Damian Quan PA-C [facility] XR PROCEDURE S documented in this encounter Visit Diagnoses Diagnosis Low back pain, unspecified back pain laterality, unspecified chronicity, unspecified whether sciatica present- Primary Lumbar facet arthropathy Spondylosis of unspecified site without mention of myelopathy Lumbar spondylosis Lumbosacral spondylosis without myelopathy History of lumbar fusion Lumbar strain, initial encounter Low back pain, unspecified back pain laterality, unspecified chronicity, unspecified whether sciatica present documented in this encounter Advance Directives Documents on File Type Date Recorded Patient Ambulance Driver Paramedic Expl anation Advance Directives and Living Will 09/06/2020 2:00 PM DIRECTIVE TO PHYSICIANS/SUPPLIMENT Power of Immunochemist 09/06/2020 1:42 PM Advance Directives and Living Will 02/16/2019 Advance Directives and Living Will 02/16/2019 Power of Immunochemist 02/16/2019 Latest Code Status on File Code Status Date Activated Date Inactivated Comments Full Code 02/27/2022 5:52 AM 02/27/2022 7:57 PM Code Status History Code Status Date Activated Date Inactivated Comments Full Code 01/19/2021 8:36 AM 01/19/2021 12:48 PM Care Teams Window Clerk Relationship Specialty Start Date End Date Marta Rojas MD [address] [place] [phone] PCP - General Internal Medicine 09/05/20 documented as of this encounter
== END ==
PROVIDERS: Referring Provider Internal Medicine Cardiovascular Disease; Visit Provider Internal Medicine Cardiovascular Disease
DX: Q23.1 Congenital insufficiency of aortic valve (principal); I77.89 Other specified disorders of arteries and arterioles
CPT/HCPCS: 93306

== ENCOUNTER 2023-11-07 18:10 | Emergency (ER) | payer MEDICARE, SELFPAY ==
[2023-11-07 18:12] VITALS: BP 151/76; PULSE 56; RESP 15; TEMP 36.9; O2SAT 97; BMI 31.4
[2023-11-07] MEDS: PROPARACAINE 0.5% OPHTH SOL 1 DROPS EYE-RIGHT (18:59)
[2023-11-07] MEDS: TET,DIPH,PERTUSS(ACELL),VAC/PF 0.5 ML SYRINGE IM (18:59)
[2023-11-07] MEDS: FLUORESCEIN 1 MG STRIP EYE-BOTH (18:59)
--- NOTE | 2023-11-07 19:42 | ED_ITS ---
HPI - General Adult General Chief complaint: Eye Problems Stated complaint: foreign object in eye cornial abrasion, sent by [facility] Time Seen by Provider: 11/07/23 18:30 Source: patient Mode of arrival: Ambulatory History of Present Illness HPI narrative: Patient is a 77-year-old male who was sent from the walk-in clinic for evaluation of a corneal abrasion and concern for potential retained foreign body. Patient stated that he has been doing quite a bit of work over the past day or so working with metal and also would. He stated that he normally has some ?gritty? eyes in the morning and this morning it was particularly more so than normal. He has had quite a bit of discomfort in the eye. He went to the walk-in clinic. He states that they put some drops in his eyes and looked at it with a dye and told that he had a corneal abrasion but was sent to the emergency department for further evaluation. Related Data Home Medications Medication Instructions Recorded Confirmed lisinopril 10 mg tablet 20 mg PO DAILY 06/10/19 11/07/23 primidone 50 mg tablet 50 mg PO BID 03/30/20 11/07/23 Previous Rx's Medication Instructions Recorded pravastatin 10 mg tablet 10 mg PO HS #90 tabs 03/22/21 erythromycin 5 mg/gram (0.5 %) eye 0.5 inch EYE-LEFT 6XD 7 days #3.5 11/07/23 ointment grams Allergies Allergy/AdvReac Type Severity Reaction Status Date / Time penicillin G [PENICILLIN G] Allergy Mild HIVES Verified 11/07/23 18:22 Review of Systems Review of Systems ROS Unobtainable: All systems reviewed & are unremarkable except as noted in HPI and below Patient History Medical History Lumbar spine pain (2013) Hyperlipidemia History of prostate cancer Hypertension Diverticular disease Peripheral neuropathy (2013) Shoulder pain (2001) Fractures (1992) Foot pain (1992) Back pain (2013) Ankle pain (1992) Numerous moles Warts Chicken pox (1951) Elevated PSA (1995) Prostate cancer (2001) Surgical History (Updated 10/30/17 @ 15:20 by Sona Bowens) Anesthesia History of foot surgery (2013) History of foot surgery (1992) Previous back surgery (2014) History of tonsillectomy (1951) Status post radical cystoprostatectomy (2001) Family History (Updated 09/05/17 @ 15:37 by Sona Bowens) Sister Age: 77 Scleroderma Father No problems noted. Mother No problems noted. Grandfather Heart attack Grandmother Heart attack Grandfather No problems noted. Grandmother Heart attack Social History Smoking Status: Former smoker alcohol intake: current Smoking Status: Former smoker alcohol intake frequency: holidays/special occasions only Substance Use Type: does not use Exam Initial Vital Signs Initial Vital Signs: Vital Signs Temperature 98.4 F 11/07/23 18:12 Pulse Rate 56 L 11/07/23 18:12 Respiratory Rate 15 11/07/23 18:12 Blood Pressure 151/76 H 11/07/23 18:12 Pulse Oximetry 97 11/07/23 18:12 Oxygen Delivery Method Room Air 11/07/23 18:12 Const General: cooperative, comfortable and No ill appearing HENMT Head: normal to inspection and normocephalic Eyes General: Yes appearance normal, both eyes and all related structures Periorbital: periorbital findings normal Eyelids: eyelids normal Conjunctivae: conjunctivae normal Cornea: corneas abnormal on the left fluorescein used and abrasion and fluorescein used Pupils: PERRL EOM: EOM intact bilaterally Skin General: no rashes or lesions noted Neuro General: patient alert, patient awake and moves all extremities Course Orders Ordered: Discontinued Medications Diphtheria/Tetanus/Acell Pertussis (Tet,Diph,Pertuss(Acell),Vac/Pf 0.5 Ml Syringe) 0.5 ml IM .ONCE ONE Stop: 11/07/23 18:31 Last Admin: 11/07/23 18:59 Dose: 0.5 ml Documented By: BRYCE Erythromycin (Erythromycin Ophth 1 Gm Oint) 1 applic EYE-LEFT NOW ONE Stop: 11/07/23 19:44 Last Admin: 11/07/23 19:49 Dose: 1 applic Documented By: HAYLEY Fluorescein Sodium (Fluorescein 1 Mg Strip) 1 mg EYE-BOTH NOW ONE Stop: 11/07/23 18:31 Last Admin: 11/07/23 18:59 Dose: 1 mg Documented By: BRYCE Proparacaine HCl (Proparacaine 0.5% Ophth Stefania) 1 drops EYE-RIGHT NOW ONE Stop: 11/07/23 18:31 Last Admin: 11/07/23 18:59 Dose: 1 1000units Documented By: BRYCE Vital Signs Vital signs: Vital Signs - 8 hr 11/07/23 18:12 11/07/23 20:08 Temperature 98.4 F Pulse Rate 56 L 50 L Respiratory Rate 15 16 Blood Pressure 151/76 H 168/81 H Pulse Oximetry 97 100 Oxygen Delivery Method Room Air Room Air Medical Decision Making MDM Narrative Medical decision making narrative: Patient does have a corneal abrasion in the left eye. There was no indication that this is an open globe or a ulceration. No foreign body was noted in the eye. The upper and lower eyelids were everted without any signs of a foreign body. I was no hyphema. No signs of conjunctivitis. Erythromycin ointment at already been prescribed by the walk-in clinic. Patient was advised to take this medication as directed. Erythromycin was placed in the emergency department. He was given return precautions. He expressed understanding and agreement. Discharge Plan Departure Patient Disposition: Home Clinical Impression: Corneal abrasion Instructions: DI for Corneal Abrasion Activity Restrictions/Additional Instructions: A prescription for antibiotic ointment was sent by the walk-in clinic to [facility]. Please pick it up and start taking it as directed. Return to the emergency department for new or worsening symptoms. Prescriptions: No Action erythromycin 5 mg/gram (0.5 %) ointment 0.5 inch EYE-LEFT 6XD 7 Days Qty: 3.5 0RF primidone 50 mg tablet 50 mg PO BID pravastatin 10 mg tablet 10 mg PO HS Qty: 90 0RF lisinopril 10 mg tablet 20 mg PO DAILY Referrals: Marta Rojas MD [Primary Care Provider] - Stand Alone Forms: Patient Portal/API
[2023-11-07] MEDS: ERYTHROMYCIN OPHTH 1 GM OINT 1 APPLIC EYE-LEFT (19:49)
[2023-11-07 20:08] VITALS: BP 168/81; PULSE 50; RESP 16; O2SAT 100
== END 2023-11-07 19:45 | disposition home or self-care (01) ==
PROVIDERS: Emergency Provider Emergency Medicine; PCP Internal Medicine Geriatric Medicine
DX: S05.02XA Injury of conjunctiva and corneal abrasion without foreign body, left eye, initial encounter (principal); Z23 Encounter for immunization
CPT/HCPCS: 90471; 99283; 90715

== ENCOUNTER → 2024-02-03 12:25 | Outpatient (CLI) | payer MEDICARE, SELFPAY ==
--- NOTE | 2024-02-03 12:27 | DI.ECHO.S_ITS ---
[facility] : : [address] : : [id number] : : Phone: [phone] Echocardiogram Report + + :Name: DESMOND CALDWELL Study Date: 02/03/2024 Height: 67.5 in: :[facility] ReadingLocation: Weight: 202 lb : : Gender: Male BSA: 2.0 m2 : :: 1945 Age: 78 yrs BP: 139/85 mmHg: :Reason For Study: BICUSPID AORTIC VALVE : :Ordering Physician: SWEETIE, : :NAWAF Performed By: Yamile Parkinson : :Referring: NAWAF MCGOWAN : + + Interpretation Summary 1) Normal left ventricular thickness, size, wall motion, and systolic function (EF 55-60%). 2 Mildly enlarged right ventricle wiht normal function. 3) Aortic valve is bicuspid and calcific. 4) There is moderate aortic stenosis (valve area 1.cm2, mean gradient 27mmHg, severity ratio 0.29). 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 6) Compared to the echo done 02/07/2023, no significant change. Procedure: A two-dimensional transthoracic echocardiogram with color flow and Doppler was performed. The study quality was technically adequate. Comparison is made with the echocardiogram of 02/07/2023. The patient was in sinus bradycardia with heart rates between 47-51 bpm during the exam. Left Ventricle: The left ventricle is normal in size and wall thickness. The ejection fraction is estimated to be 55-60%. Left ventricular systolic function appears normal without focal wall motion abnormalities. Right Ventricle: The right ventricle is mildly dilated. The right ventricular systolic function is normal. Atria: The left atrium is moderately dilated. Right atrial size is normal. There is no Doppler evidence for an interatrial shunt. Mitral Valve: There is mild mitral annular calcification. The mitral valve leaflets appear mildly thickened, but open well. There is trace mitral regurgitation. Aortic Valve: The aortic valve is bicuspid. The aortic valve is severely calcified. The peak aortic velocity is 3.3 m/sec. The aortic valve mean gradient is 27 mmHg. The calculated aortic valve area is 1.2 cm2. There is trace aortic regurgitation. Tricuspid Valve: The tricuspid valve is normal in structure and function. The right ventricular systolic pressure is estimated to be at least 21 mmHg based on an estimated right atrial pressure of 3 mm Hg. There is trace tricuspid regurgitation. Pulmonic Valve: The pulmonic valve leaflets are thin and pliable; valve motion is normal. There is a trace or physiologic amount of pulmonic regurgitation. Great Vessels: The aortic root is normal size. The ascending aorta is moderate-severely enlarged. The IVC is of normal diameter and collapses greater than 50% with a sniff. This suggests a low right atrial pressure of 3 mm Hg. Pericardium/ Pleura There is no pericardial effusion. There is no pleural effusion. MMode/2D Measurements & Calculations LVIDd: 5.6 cm LVOT diam: 2.2 cm LVIDs: 3.6 cm Ao root diam: 3.1 cm FS: 35.2 % asc Aorta Diam: 4.7 cm EPSS: 0.60 cm Ao Arch Diam (Prox Trans): 2.6 cm IVSd: 0.89 cm LVPWd: 0.94 cm LV costa. diameter/BSA (cm/m^2): 2.7 LV sys. diameter/BSA (cm/m^2): 1.8 LA A2 area: 24.1 cm2 RA long axis: 4.8 cm LA A4 area: 23.1 cm2 RA area: 15.8 cm2 LA length (vol): 5.9 cm RA vol: 44.0 ml LA vol: 80.4 ml RA : 21.5 ml/m2 LA vol index: 39.3 ml/m2 IVC diam: 1.4 cm RVD1 (basal): 4.3 cm RVD2 (mid): 3.6 cm TAPSE: 2.0 cm Doppler Measurements & Calculations Ao V2 max: 332.7 cm/sec LVOT Max Girma: 91.8 cm/sec Ao V2 mean: 242.0 cm/sec LV V1 max P.4 mmHg Ao max P.8 mmHg LV V1 VTI: 22.2 cm Ao mean P.8 mmHg ARMIDA(I,D): 1.2 cm2 Ao V2 VTI: 75.3 cm ARMIDA(V,D): 1.1 cm2 sev ratio: 0.29 ARMIDA indexed to BSA (cm^2/m^2): 0.57 MV E max girma: 58.4 cm/sec TR max girma: 212.5 cm/sec MV A max girma: 62.6 cm/sec TR max P.1 mmHg MV E/A: 0.93 PA V2 max: 91.6 cm/sec Med Peak E' Girma: 4.1 cm/sec PA V2 mean: 59.6 cm/sec E/E' med: 14.2 PA mean P.6 mmHg Lat Peak E' Girma: 8.3 cm/sec PA pr(Accel): 29.3 mmHg E/E' lat: 7.1 E/e' average: 10.6 MV dec time: 0.32 sec SV(LVOT): 87.4 ml Reading Physician:10:37 AM
== END ==
PROVIDERS: PCP Internal Medicine Geriatric Medicine; Referring Provider Internal Medicine Cardiovascular Disease; Visit Provider Internal Medicine Cardiovascular Disease
DX: Q23.1 Congenital insufficiency of aortic valve (principal); I35.0 Nonrheumatic aortic (valve) stenosis; I34.81 Nonrheumatic mitral (valve) annulus calcification; I77.89 Other specified disorders of arteries and arterioles
CPT/HCPCS: 93306